=== PATIENT | male | born 1965 | race Caucasian/White ===

== ENCOUNTER 2021-03-06 11:12 | Emergency (ER) | payer SELFPAY ==
--- NOTE | 2021-03-06 11:23 | Emergency Department Report ---
Blank Doc - Documentation Documentation: 55-year-old male that presents with left sided rash/hives with left eyelid swe lling and pain. HTN in triage. 1- This initial assessment/diagnostic orders/clinical plan/ treatment(s) is/are subject to change based on pt's health status, clinical progression and re- assessment by fellow clinical providers in the ED. Further treatment and workup at subsequent clinical provers discretion. Patient/guardians urged not to elope from ED as their condition may be serious if not clinically assessed and managed. 2-labs r/o HTN emergency
[2021-03-06] MEDS ORDERED: predniSONE 20 MG TAB PO ONE (11:47)
--- NOTE | 2021-03-06 11:55 | Emergency Department Report ---
ED Allergic Reaction HPI - General Chief complaint: Allergic Reaction Stated complaint: ALLERGIC REACTION Time Seen by Provider: 03/06/21 11:16 Source: patient Mode of arrival: Ambulatory Limitations: No Limitations - History of Present Illness Initial Comments: CC: "I was doing some yard work. Then this happened." HPI: This is a 55 yo male with hx of HTN who presents with rash to arms and face after doing hard work. Rash started on forearms. One day ago, rash developed on left side of face. No shortness of breath. NO tongue or lip swelling. One year ago, patient was diagnosed with hypertension in an emergency department during evaluation for dizziness. He did not get prescription for antihypertensive medication filled. He has been afraid to see a doctor during pandemic. He is hesitant to see a doctor due to lack of health care insurance. MD Complaint: other (Rash on arms and face) -: Gradual, days(s) (3 days ago) Exposure: plant Symptoms: rash, itching Severity: mild Treatment Prior to Arrival: none Previous Allergy History: none - Related Data Previous Rx's Medication Instructions Recorded Last Taken Type Hydrocortisone 1% [Hydrocortisone 1 applicatio TP TID 14 Days #1 tube 03/06/21 Unknown Rx 1% CREAM] Valsartan 80 mg PO DAILY #90 tablet 03/06/21 Unknown Rx amLODIPine 5 mg PO DAILY #90 tab 03/06/21 Unknown Rx predniSONE 10 mg PO .TAPER #48 tab 03/06/21 Unknown Rx Allergies Allergy/AdvReac Type Severity Reaction Status Date / Time No Known Allergies Allergy Unverified 03/06/21 11:16 ED Review of Systems ROS: Stated complaint: ALLERGIC REACTION Other details as noted in HPI Comment: All other systems reviewed and negative Constitutional: denies: fever, malaise Respiratory: denies: cough, shortness of breath Cardiovascular: denies: chest pain Gastrointestinal: denies: abdominal pain, nausea, vomiting Neurological: denies: headache ED Past Medical Hx - Past Medical History Previous Medical History?: Yes Hx Hypertension: Yes (no meds) - Surgical History Past Surgical History?: Yes Additional Surgical History: hemorrhoid - Social History Smoking Status: Never Smoker Substance Use Type: Alcohol - Medications Home Medications: Home Medications Medication Instructions Recorded Confirmed Last Taken Type Hydrocortisone 1% [Hydrocortisone 1 applicatio TP TID 14 Days #1 tube 04/25/21 Unknown Rx 1% CREAM] Valsartan 80 mg PO DAILY #90 tablet 03/06/21 Unknown Rx amLODIPine 5 mg PO DAILY #90 tab 03/06/21 Unknown Rx predniSONE 10 mg PO .TAPER #48 tab 03/06/21 Unknown Rx ED Physical Exam - General Limitations: No Limitations General appearance: alert, in no apparent distress - Head Head exam: Present: atraumatic, normocephalic, other (Patchy rash with redness left forehead with mild swelling of the left upper eyelid) - Eye Eye exam: Present: normal appearance - ENT ENT exam: Present: mucous membranes moist - Neck Neck exam: Present: normal inspection, full ROM - Respiratory Respiratory exam: Present: normal lung sounds bilaterally. Absent: respiratory distress, wheezes, rales, rhonchi - Cardiovascular Cardiovascular Exam: Present: regular rate, normal rhythm, normal heart sounds. Absent: systolic murmur, diastolic murmur, rubs, gallop - GI/Abdominal GI/Abdominal exam: Present: soft, normal bowel sounds. Absent: distended, tenderness, guarding, rebound - Rectal Rectal exam: Present: deferred - Extremities Exam Extremities exam: Present: normal inspection - Neurological Exam Neurological exam: Present: alert, oriented X3 - Psychiatric Psychiatric exam: Present: normal affect, normal mood - Skin Skin exam: Present: warm, dry, intact, rash (red Patches with small blisters left chest bilateral forearms) ED Course Vital Signs 03/06/21 11:19 Temperature 98.8 F Pulse Rate 74 Respiratory 15 Rate Blood Pressure 204/134 [Right] O2 Sat by Pulse 98 Oximetry ED Medical Decision Making - Medical Decision Making Allergic contact dermatitis due to poison ami: Hydrocortisone cream prescribed as well as prednisone taper Hypertensive urgency asymptomatic no clinical evidence of endorgan damage. Valsartan amlodipine prescribed Patient given referral to outpatient medicine physician Critical care attestation.: If time is entered above; I have spent that time in minutes in the direct care of this critically ill patient, excluding procedure time. ED Disposition Clinical Impression: Allergic contact dermatitis due to plant, Asymptomatic hypertensive urgency Disposition: DC- TO HOME OR SELFCARE Is pt being admited?: No Does the pt Need Aspirin: No Condition: Stable Instructions: Poison Ami Dermatitis, Managing Your Hypertension Prescriptions: amLODIPine 5 mg PO DAILY #90 tab Hydrocortisone 1% [Hydrocortisone 1% CREAM] 1 applicatio TP TID 14 Days #1 tube predniSONE 10 mg PO .TAPER #48 tab Valsartan 80 mg PO DAILY #90 tablet Referrals: GONZALO MIX MD [Staff Physician] - 3-5 Days
[2021-03-06 12:35] VITALS: BP 181/122
== END 2021-03-06 12:35 | disposition home or self-care (01) ==
LOC: ED 11:12
DX: L23.7 Allergic contact dermatitis due to plants, except food (principal); I10 Essential (primary) hypertension; Z79.899 Other long term (current) drug therapy
CPT/HCPCS: 99282; J7512